=== PATIENT | female | born 1985 | race Caucasian/White ===

== ENCOUNTER → 2021-08-23 16:38 | Outpatient (BNVA) | payer SELFPAY | PROVIDERS: Visit Provider Nurse Practitioner Family | DX: N89.8 Other specified noninflammatory disorders of vagina (principal); Z11.3 Encounter for screening for infections with a predominantly sexual mode of transmission; M17.10 Unilateral primary osteoarthritis, unspecified knee; B00.9 Herpesviral infection, unspecified; B37.2 Candidiasis of skin and nail; L20.9 Atopic dermatitis, unspecified; N83.209 Unspecified ovarian cyst, unspecified side | CPT/HCPCS: 83036; 87491; 87591; 87661 ==

== ENCOUNTER → 2021-12-13 13:34 | Outpatient (BNVA) | payer MEDICAID, SELFPAY | PROVIDERS: Visit Provider Nurse Practitioner Family | DX: M79.7 Fibromyalgia (principal) | CPT/HCPCS: 80053 ==

== ENCOUNTER → 2022-05-02 11:58 | Outpatient (BNVA) | payer MEDICAID, SELFPAY | PROVIDERS: PCP Nurse Practitioner Family; Visit Provider Nurse Practitioner Women's Health | DX: Z01.419 Encounter for gynecological examination (general) (routine) without abnormal findings (principal); Z13.1 Encounter for screening for diabetes mellitus; N89.8 Other specified noninflammatory disorders of vagina; Z72.53 High risk bisexual behavior; Z30.431 Encounter for routine checking of intrauterine contraceptive device | CPT/HCPCS: 83036; 86592; 86695; 86696; 86803; 87070; 87077; 87205; 87340; 87481; 87491; 87512; 87591; 87624; 87661; 87798; 87799; 87806 ==